=== PATIENT | male | born 1980 | race African-American/Black ===

== ENCOUNTER 2021-01-08 13:26 | Emergency (ER) | payer SELFPAY ==
[~2021-01-08] VITALS: Ht 193 cm; Wt 96.7 kg
[2021-01-08 14:12] VITALS: BP 148/88
--- NOTE | 2021-01-08 14:14 | PHYS DOC ---
General Adult EDM: Chief Complaint: CONSTIPATION HPI: HPI: 40-year-old male presents with constipation. Has been having issues with constipation for about the last 2 weeks. He has had some small bowel movements but is concerned he is not having enough output. He has no history of constipation issues. He has tried several [id number] remedies putting an enema yesterday. He got some output but does not think it was very much. He has some mild generalized abdominal pain. Denies fever or chills. He has no other complaints this time. Review of Systems: Review of Systems: Constitutional: Denies fever or chills Eyes: Denies change in visual acuity HENT: Denies nasal congestion or sore throat Respiratory: Denies cough or shortness of breath Cardiovascular: Denies chest pain or edema GI: Constipation, mild generalized abdominal pain. Denies nausea, vomiting, bloody stools or diarrhea : Denies dysuria Musculoskeletal: Denies back pain or joint pain Integument: Denies rash Neurologic: Denies headache, focal weakness or sensory changes Endocrine: Denies polyuria or polydipsia Lymphatic: Denies swollen glands Psychiatric: Denies depression or anxiety Allergies: Allergies: Allergies Coded Allergies Type Severity Reaction Last Updated Verified amoxicillin Allergy Unknown 01/08/21 Yes Uncoded Allergies Type Severity Reaction Last Updated Verified PENICILLIN Allergy Unknown 01/08/21 Physical Exam: PE: Constitutional: Well developed, well nourished, no acute distress, non-toxic appearance. [] HENT: Normocephalic, atraumatic, bilateral external ears normal, oropharynx moist, no oral exudates, nose normal. [] Eyes: PERRLA, EOMI, conjunctiva normal, no discharge. [] Neck: Normal range of motion, no tenderness, supple, no stridor. [] Cardiovascular: Heart rate regular rhythm, no murmur [] Lungs & Thorax: Bilateral breath sounds clear to auscultation [] Abdomen: Bowel sounds normal, soft, no tenderness, no masses, no pulsatile masses. [] Skin: Warm, dry, no erythema, no rash. [] Back: No tenderness, no CVA tenderness. [] Extremities: No tenderness, no cyanosis, no clubbing, ROM intact, no edema. [] Neurologic: Alert and oriented X 3, normal motor function, normal sensory function, no focal deficits noted. [] Psychologic: Affect normal, judgement normal, mood normal. [] EKG: EKG: [] Radiology/Procedures: Radiology/Procedures: [] Heart Score: C/O Chest Pain: N/A Risk Factors: Risk Factors: DM, Current or recent (<one month) smoker, HTN, HLP, family history of CAD, obesity. Risk Scores: Score 0 - 3: 2.5% MACE over next 6 weeks - Discharge Home Score 4 - 6: 20.3% MACE over next 6 weeks - Admit for Clinical Observation Score 7 - 10: 72.7% MACE over next 6 weeks - Early Invasive Strategies Course & Med Decision Making: Course & Med Decision Making Pertinent Labs and Imaging studies reviewed. (See chart for details) The patient's KUB has some retained stool, but no evidence of obstruction. I have advised that he take magnesium citrate. We will give him a bottle in the ED. He is stable for discharge at this time. [] Dragon Disclaimer: Dragon Disclaimer: This electronic medical record was generated, in whole or in part, using a voice recognition dictation system. Departure Departure: Impression: Primary Impression: Constipation Disposition: HOME / SELF CARE / HOMELESS Condition: STABLE Referrals: PCP,NO (PCP) Patient Instructions: Constipation, Adult, [id number] AYESHA SHAH DO Jan 08, 2021 14:14
[2021-01-08] MEDS ORDERED: MAGNESIUM CITRATE 296 ML SOLUTION. PO ONE (15:00)
--- NOTE | 2021-01-08 15:01 | RAD ---
EXAM: ABDOMEN ONE VIEW. HISTORY: Constipation. COMPARISON: None. FINDINGS: A frontal view of the abdomen is obtained. There are no distended small bowel loops. There is gas distally. The amount of stool does not appear abnormally increased. IMPRESSION: 1. No evidence of obstruction. Electronically signed by: Willian Sebastian MD (01/08/2021 2:58 PM) [facility]
== END 2021-01-08 15:09 | disposition home or self-care (01) ==
LOC: ER 13:26
DX: K59.00 Constipation, unspecified (principal); R10.84 Generalized abdominal pain; Z88.1 Allergy status to other antibiotic agents
CPT/HCPCS: 74018; 99283

== ENCOUNTER 2021-01-10 08:52 | Emergency (ER) | payer SELFPAY ==
[~2021-01-10] VITALS: Ht 193 cm; Wt 96.7 kg
[2021-01-10] MEDS ORDERED: ONDANSETRON PF 4 MG/2 ML VIAL. IVP ONE (10:15)
[2021-01-10] MEDS ORDERED: CONTRAST GIVEN. MC PRN (10:15)
[2021-01-10] MEDS ORDERED: IOHEXOL 300 MG/ML 75 ML VIAL. IV ONE (10:15)
[2021-01-10] MEDS ORDERED: IV NORMAL SALINE 1,000ML 1,000 ML IV SCH (10:15)
[2021-01-10 10:40] LABS: BASO # 0.1 x10^3/uL (0.0-0.2); BASO % 0 % (0-3); EOS % 0 % (0-3); HEMATOCRIT 47.9 % (39.0-53.0); HEMOGLOBIN 15.7 g/dL (13.0-17.5); LYMPH # 1.2 x10^3/uL (1.0-4.8); LYMPH % 5 % (24-48); MEAN CORPUSCULAR HEMOGLOBIN 29 pg (25-35); MEAN CORPUSCULAR HGB CONC 33 g/dL (31-37); MEAN CORPUSCULAR VOLUME 88 fL (79-100); MONO # 1.8 x10^3/uL (0.0-1.1); MONO % 8 % (0-9); NEUT # 20.5 x10^3uL (1.8-7.7); NEUT % 87 % (31-73); PLATELET COUNT 234 x10^3/uL (140-400); RED BLOOD COUNT 5.42 x10^6/uL (4.30-5.70); RED CELL DISTRIBUTION WIDTH 13.6 % (11.5-14.5); WHITE BLOOD COUNT 23.6 x10^3/uL (4.0-11.0)
[2021-01-10 10:45] LABS: CALCIUM 9.9 mg/dL (8.5-10.1); GFR 101.2; POTASSIUM 3.5 mmol/L (3.5-5.1)
--- NOTE | 2021-01-10 10:49 | RAD ---
Exam: CT abdomen/pelvis with intravenous contrast Indication: Abdominal pain Comparison: Abdominal radiograph 01/08/2021 Technique: Helical CT imaging performed of the abdomen and pelvis after the intravenous administratio n of contrast. Sagittal and coronal reformats were obtained. One or more of the following individualized dose reduction techniques were utilized for this examinat ion: 1. Automated exposure control 2. Adjustment of the mA and/or kV according to patient size 3. Use of iterative reconstruction technique. Findings: Lower chest: Normal. Liver: The liver measures 20 cm in length. No focal liver lesion. Gallbladder/Biliary Tree: Normal. Pancreas: Normal. Spleen: Normal. Adrenal Glands: Normal. Kidneys/Ureters/Bladder: The kidneys are normal. Ureters and bladder are unremarkable. Reproductive Organs: Prostate gland is normal Stomach, small bowel, and colon: There is wall thickening of the sigmoid colon with a focal eccentric masslike area measuring 3.5 x 3.4 x 3.7 cm. There is moderate surrounding fat stranding. The rest of the colon is unremarkable. Appendix, small bowel, and stomach are normal. Vasculature: Abdominal aorta is normal in caliber. Lymph Nodes: There are small lymph nodes in the left lower quadrant adjacent to the sigmoid colon. Peritoneum and retroperitoneum: No free fluid or free air. Bones: No acute osseous abnormality. IMPRESSION: 3.7 cm mass in the sigmoid colon with moderate surrounding inflammation. This is concern ing for malignancy. Colitis with a complex intramural abscess is a differential consideration. Electronically signed by: Martina Francois MD (01/10/2021 10:47 AM) [id number]
[2021-01-10 10:51] LABS: ALBUMIN 3.7 g/dL (3.4-5.0); ALBUMIN/GLOBULIN RATIO 0.8 (1.0-1.7); TOTAL BILIRUBIN 0.4 mg/dL (0.2-1.0); TOTAL PROTEIN 8.5 g/dL (6.4-8.2)
--- NOTE | 2021-01-10 11:23 | PHYS DOC ---
Past History Past Surgical History: No Surgical History Alcohol Use: None General Adult EDM: Chief Complaint: ABDOMINAL PAIN HPI: HPI: Patient is a 40-year-old male who presents to the emergency department for lower abdominal pain that he describes as cramping pain. He rates it 10 out of 10. The pain does not radiate. No treatment prior to arrival. Patient was seen in this ER 2 days ago for constipation and was given mag citrate, patient reports that he was able to have a bowel movement but continues to have the abdominal pain. Patient is also reporting nausea. He denies vomiting, diarrhea, fevers, to recent travel, blood in stools or vomit, sick exposures, urinary symptoms. Review of Systems: Review of Systems: 14 body systems of the review of systems have been reviewed. See HPI for pertinent positive and negative responses, otherwise all other systems are negative, nonpertinent or noncontributory Current Medications: Current Meds: Current Medications Medications (Trade) Dose Ordered Sig/Jaiden Start Time Stop Time Status Last Admin Dose Admin Info (Do NOT chart on this entry -- for MONITORING) 1 each PRN DAILY PRN 01/10/21 10:15 01/12/21 10:14 Iohexol (Omnipaque 300 Mg/ml) 75 ml 1X ONCE 01/10/21 10:15 01/10/21 10:16 DC 01/10/21 10:20 75 ML Ondansetron HCl (Zofran) 4 mg 1X ONCE 01/10/21 10:15 01/10/21 10:16 DC 01/10/21 10:20 4 MG Sodium Chloride 1,000 ml @ 1,000 mls/hr Q1H 01/10/21 10:15 01/10/21 11:14 DC 01/10/21 10:19 1,000 MLS/HR Allergies: Allergies: Allergies Coded Allergies Type Severity Reaction Last Updated Verified Penicillins Allergy Intermediate 01/08/21 Yes amoxicillin Allergy Unknown 01/08/21 Yes Physical Exam: PE: Constitutional: Well developed, well nourished, no acute distress, non-toxic appearance. [] HENT: Normocephalic, atraumatic, bilateral external ears normal, oropharynx moist, no oral exudates, nose normal. [] Eyes: PERRL, EOMI, conjunctiva normal, no discharge. [] Neck: Normal range of motion, no stridor Cardiovascular:Heart rate regular rhythm, no murmur [] Lungs & Thorax: Bilateral breath sounds clear to auscultation [] Abdomen: Bowel sounds normal, soft, medial lower abdominal pain with palpation, no masses, no pulsatile masses. [] Skin: Warm, dry, no erythema, no rash. [] Back: Normal range of motion Extremities: No tenderness, no cyanosis, no clubbing, ROM intact, no edema. [] Neurologic: Alert and oriented X 3, normal motor function, normal sensory function, no focal deficits noted. [] Psychologic: Affect normal, judgement normal, mood normal. [] Current Patient Data: Labs: Laboratory Tests Test 01/10/21 10:13 White Blood Count 23.6 x10^3/uL (4.0-11.0) H Red Blood Count 5.42 x10^6/uL (4.30-5.70) Hemoglobin 15.7 g/dL (13.0-17.5) Hematocrit 47.9 % (39.0-53.0) Mean Corpuscular Volume 88 fL (79-100) Mean Corpuscular Hemoglobin 29 pg (25-35) Mean Corpuscular Hemoglobin Concent 33 g/dL (31-37) Red Cell Distribution Width 13.6 % (11.5-14.5) Platelet Count 234 x10^3/uL (140-400) Neutrophils (%) (Auto) 87 % (31-73) H Lymphocytes (%) (Auto) 5 % (24-48) L Monocytes (%) (Auto) 8 % (0-9) Eosinophils (%) (Auto) 0 % (0-3) Basophils (%) (Auto) 0 % (0-3) Neutrophils # (Auto) 20.5 x10^3uL (1.8-7.7) H Lymphocytes # (Auto) 1.2 x10^3/uL (1.0-4.8) Monocytes # (Auto) 1.8 x10^3/uL (0.0-1.1) H Eosinophils # (Auto) 0.0 x10^3/uL (0.0-0.7) Basophils # (Auto) 0.1 x10^3/uL (0.0-0.2) Platelet Estimate Pending Sodium Level 138 mmol/L (136-145) Potassium Level 3.5 mmol/L (3.5-5.1) Chloride Level 97 mmol/L (98-107) L Carbon Dioxide Level 30 mmol/L (21-32) Anion Gap 11 (6-14) Blood Urea Nitrogen 11 mg/dL (8-26) Creatinine 1.0 mg/dL (0.7-1.3) Estimated GFR (Cockcroft-Gault) 101.2 BUN/Creatinine Ratio 11 (6-20) Glucose Level 129 mg/dL (70-99) H Calcium Level 9.9 mg/dL (8.5-10.1) Total Bilirubin 0.4 mg/dL (0.2-1.0) Aspartate Amino Transferase (AST) 14 U/L (15-37) L Alanine Aminotransferase (ALT) 23 U/L (16-63) Alkaline Phosphatase 98 U/L (46-116) Total Protein 8.5 g/dL (6.4-8.2) H Albumin 3.7 g/dL (3.4-5.0) Albumin/Globulin Ratio 0.8 (1.0-1.7) L Lipase 53 U/L (73-393) L Vital Signs: Vital Signs Date Time Temp Pulse Resp B/P (MAP) Pulse Ox O2 Delivery O2 Flow Rate FiO2 01/10/21 10:06 98.5 84 16 141/97 (112) 98 Room Air EKG: EKG: [] Radiology/Procedures: Radiology/Procedures: []PROCEDURE: CT ABD PELV W/ IV CONTRST ONLY Exam: CT abdomen/pelvis with intravenous contrast Indication: Abdominal pain Comparison: Abdominal radiograph 01/08/2021 Technique: Helical CT imaging performed of the abdomen and pelvis after the intravenous administration of contrast. Sagittal and coronal reformats were obtained. One or more of the following individualized dose reduction techniques were utilized for this examination: 1. Automated exposure control 2. Adjustment of the mA and/or kV according to patient size 3. Use of iterative reconstruction technique. Findings: Lower chest: Normal. Liver: The liver measures 20 cm in length. No focal liver lesion. Gallbladder/Biliary Tree: Normal. Pancreas: Normal. Spleen: Normal. Adrenal Glands: Normal. Kidneys/Ureters/Bladder: The kidneys are normal. Ureters and bladder are unremarkable. Reproductive Organs: Prostate gland is normal Stomach, small bowel, and colon: There is wall thickening of the sigmoid colon with a focal eccentric masslike area measuring 3.5 x 3.4 x 3.7 cm. There is moderate surrounding fat stranding. The rest of the colon is unremarkable. Appendix, small bowel, and stomach are normal. Vasculature: Abdominal aorta is normal in caliber. Lymph Nodes: There are small lymph nodes in the left lower quadrant adjacent to the sigmoid colon. Peritoneum and retroperitoneum: No free fluid or free air. Bones: No acute osseous abnormality. IMPRESSION: 3.7 cm mass in the sigmoid colon with moderate surrounding inflammation. This is concerning for malignancy. Colitis with a complex intramural abscess is a differential consideration. Electronically signed by: Martina Francois MD (01/10/2021 10:47 AM) [id number] Heart Score: C/O Chest Pain: N/A Risk Factors: Risk Factors: DM, Current or recent (<one month) smoker, HTN, HLP, family history of CAD, obesity. Risk Scores: Score 0 - 3: 2.5% MACE over next 6 weeks - Discharge Home Score 4 - 6: 20.3% MACE over next 6 weeks - Admit for Clinical Observation Score 7 - 10: 72.7% MACE over next 6 weeks - Early Invasive Strategies Course & Med Decision Making: Course & Med Decision Making Pertinent Labs and Imaging studies reviewed. (See chart for details) [] Patient presents to the emergency department for abdominal pain. Work-up in the ER consisted of blood work, urinalysis and CT imaging of abdomen and pelvis. Patient treated with IV fluids nausea medication and pain medication. CT scan of abdomen pelvis shows a 3.7 cm mass in his sigmoid colon, the radiologist read it as a possible malignancy versus an abscess. Patient was noted to have leukocytosis with a white blood cell count of 23.6. His CMP was unremarkable. I discussed patient's case with Dr. Ramirez who is the general surgeon at [facility] and he agreed to consult the patient at [facility]. I discussed patient's case with Dr. Liang who is the hospitalist at [facility] and he agreed to admit the patient under his services. Antibiotics and pain medication ordered for patient, vancomycin and metronidazole ordered as patient has allergy to penicillin amoxicillin.. Patient's vital signs remained stable. I discussed patient's findings with him as well as treatment plan he is agreeable at this time. Care transferred upon transfer [id number]: I was notified that [facility] no longer had any beds to transfer patient, I discussed patient's case with Dr. Lazo resident at [facility] who agreed to admit the patient under Dr. Barclay for abdominal abs cess. Patient informed of this care plan change. Dragon Disclaimer: Dragon Disclaimer: This electronic medical record was generated, in whole or in part, using a voice recognition dictation system. Departure Departure: Impression: Primary Impression: Abdominal pain Qualified Codes: R10.30 - Lower abdominal pain, unspecified Disposition: 02 SHORT TERM HOSPITAL Condition: GOOD Referrals: PCP,BUSHRA (PCP) AMANDA MERCEDES STONE CHIMNEY MASON Jan 10, 2021 11:23
[2021-01-10] MEDS ORDERED: VANCOMYCIN PER PHARMACY MC PRN (12:00)
[2021-01-10] MEDS ORDERED: VANCOMYCIN 2 GM in IV NORMAL SALINE 500ML 500 ML IV ONE (12:30)
[2021-01-10 12:45] LABS: BILIRUBIN,URINE SMALL (NEG); CLARITY,URINE CLEAR; COLOR,URINE YELLOW; GLUCOSE,URINE NEG (NEG); NITRITE,URINE NEG (NEG); UROBILINOGEN,URINE 0.2 mg/dL (0.2 mg/dL)
[2021-01-10 12:48] LABS: BACTERIA,URINE 0 /HPF (0-FEW); SQUAMOUS EPITHELIAL CELL,UR OCC /LPF; WBC,URINE 0 /HPF (0-4)
[2021-01-10 13:35] LABS: % BANDS 4 % (0-9); % LYMPHS 10 % (24-48); % MONOS 2 % (0-10); % SEGS 84 % (35-66); PLT ESTIMATE ADEQUATE (ADEQUATE)
[2021-01-10] MEDS ORDERED: MORPHINE SULFATE 4 MG/ML DISP.SYRIN. IV ONE (16:15)
[2021-01-10 17:38] VITALS: BP 124/80
== END 2021-01-10 18:59 | disposition short-term general hospital (02) ==
LOC: ER 08:52
DX: R10.30 Lower abdominal pain, unspecified (principal); K59.00 Constipation, unspecified; R11.0 Nausea; Z20.822 Contact with and (suspected) exposure to COVID-19; Z88.0 Allergy status to penicillin; Z88.1 Allergy status to other antibiotic agents
CPT/HCPCS: 36415; 74177; 80053; 81001; 83605; 83690; 85007; 85025; 87426; 96361; 96365; 96366; 96367; 96375; 96376; 99285; C9803; J2270; J2405; J3010; J3370; J3490; J7030; J7040; Q9967; U0003